=== PATIENT | male | born 1930 | race Caucasian/White ===

== ENCOUNTER 2016-08-24 01:06 | Emergency (ER) | payer MEDICARE, BC ==
[~2016-08-24 01:06] MED LIST: 1-ME1LIQ PO; ALLO300 PO; APIX5TAB PO; CARBXR200 PO; CARV12.52 PO; OMEP20CA5 PO; PRIN20TA2 PO; TAB-TAB PO
[2016-08-24 01:10] VITALS: BP 172/79; PULSE 54; RESP 18; O2SAT 97
[2016-08-24 04:30] VITALS: BP 176/90; PULSE 106; RESP 20; O2SAT 96
[2016-08-24] MEDS ORDERED: SODIUM CHLORID 0.9% 500 ML INJ 500 ML IV ONE (04:45)
[2016-08-24] MEDS ORDERED: SODIUM CHLORIDE 0.9% FLUSH 10 ML FLUSH IV FLUSH PRN (04:45)
[2016-08-24] MEDS ORDERED: ONDANSETRON HCL 4 MG/2 ML VIAL IVP ONE (04:45)
--- NOTE | 2016-08-24 04:47 | PD ---
HPI Chief Complaint: Abdominal Pain Time Seen by Provider: 04:30 Travel History International Travel<30 days: No Contact w/Intl Traveler<30days: No Traveled to known affect area: No History of Present Illness HPI Patient is an 86-year-old male who presents to emergency room with complaints of abdominal pain. Patient reports that he began to have periumbilical abdominal pain around 10 PM last night. Patient reports that the pain lasted about 4 hours, reports that now he just feels nauseous. Patient reports no sick contacts at home, reports that his ate the same meal as he did and his is fine. Denies any diarrhea. Denies fevers or chills, denies dysuria , urinary urgency or frequency. Patient reports that during these 4 hours of abdominal pain, he had a cough, reports the cough is nonproductive. Patient reports that he feels better at this time, reports just nausea. Patient with no chest pain or shortness of breath at this time. PFSH Past Medical History Hx Anticoagulant Therapy: Yes Atrial Fibrillation: Yes Cancer: Yes (ESPHAGEAL CA) Cardiovascular Problems: Yes (HTN) Diminished Hearing: No GERD: Yes Hypertension: Yes Immunizations Current: Yes (FLU SHOT 2007) Tetanus Vaccination: Unknown Influenza Vaccination: No Past Surgical History Abdominal Surgery: Yes (ESOPHAGEAL CA WITH RECONSTRUCTION 1996 S/P ESOPHAGECTOMY) Joint Replacement: Yes (LT KNEE X 2) Oral Surgery: Yes Other Surgery: Yes (FRONTAL SINUS REMOVAL ) Social History Alcohol Use: No Tobacco Use: No Substance Use: No Allergies-Medications (Allergen,Severity, Reaction): Coded Allergies: No Known Allergies (Verified , 08/24/16) Reported Meds & Prescriptions Reported Meds & Active Scripts Active Reported Carvedilol 12.5 mg (Carvedilol) 12.5 Mg Tab 1 Tab PO DAILY Amlodipine Besylate 10 mg (Amlodipine Besylate) 10 Mg Tab 1 Tab PO DAILY Eliquis (Apixaban) 5 Mg Tab 5 Mg PO BID Tegretol-Xr (Carbamazepine) 200 Mg Tab 100 Mg PO BID Multivitamin (Multivitamins) 1 Tab Tab 1 Tab PO DAILY Zyloprim (Allopurinol) 300 Mg Tab 300 Mg PO DAILY Prilosec 20 mg (Omeprazole) 20 Mg Capcr 20 Mg PO DAILY Prinivil (Lisinopril) 20 Mg Tab 20 Mg PO DAILY Review of Systems General / Constitutional: No: Fever Eyes: No: Visual changes HENT: No: Headaches Cardiovascular: No: Chest Pain or Discomfort Respiratory: Positive: Cough, No: Shortness of Breath Gastrointestinal: Positive: Nausea, Abdominal Pain, No: Vomiting Genitourinary: No: Dysuria Musculoskeletal: No: Pain Skin: No Rash Neurologic: No: Weakness Psychiatric: No: Depression Endocrine: No: Polydipsia Hematologic/Lymphatic: No: Easy Bruising Physical Exam Narrative GENERAL: nad, nontoxic SKIN: Focused skin assessment warm/dry. HEAD: Atraumatic. Normocephalic. EYES: Pupils equal and round. No injection or drainage. ENT: No nasal bleeding or discharge. Mucous membranes pink and moist. NECK: Trachea midline. No JVD. CARDIOVASCULAR: Regular rate and rhythm. No murmur appreciated. RESPIRATORY: No accessory muscle use. Clear to auscultation. Breath sounds equal bilaterally. GASTROINTESTINAL: Abdomen soft, non-tender, nondistended. MUSCULOSKELETAL: No obvious deformities. No clubbing. No cyanosis. No edema. NEUROLOGICAL: Awake and alert. No obvious cranial nerve deficits. Motor grossly within normal limits. Normal speech. PSYCHIATRIC: Appropriate mood and affect; insight and judgment normal. Data Data Last Documented VS Vital Signs Date Time Temp Pulse Resp B/P Pulse Ox O2 Delivery O2 Flow Rate FiO2 08/24/16 06:25 99 20 162/75 95 Orders Complete Blood Count With Diff (08/24/16 04:38) Comprehensive Metabolic Panel (08/24/16 04:38) Lipase (08/24/16 04:38) Urinalysis - C+S If Indicated (08/24/16 04:38) Ct Abd/Pel W/O Iv Contrast (08/24/16 04:38) Iv Access Insert/Monitor (08/24/16 04:38) Ondansetron Inj (Zofran Inj) (08/24/16 04:45) Sodium Chloride 0.9% Flush (Ns Flush) (08/24/16 04:45) Chest, Single Ap (08/24/16 04:38) Sodium Chlorid 0.9% 500 Ml Inj (Ns 500 M (08/24/16 04:45) Labs Laboratory Tests Test 08/24/16 04:50 White Blood Count 11.2 TH/MM3 Red Blood Count 4.43 MIL/MM3 Hemoglobin 14.5 GM/DL Hematocrit 42.9 % Mean Corpuscular Volume 96.9 FL Mean Corpuscular Hemoglobin 32.7 PG Mean Corpuscular Hemoglobin 33.7 % Concent Red Cell Distribution Width 13.8 % Platelet Count 147 TH/MM3 Mean Platelet Volume 8.4 FL Neutrophils (%) (Auto) 91.3 % Lymphocytes (%) (Auto) 5.4 % Monocytes (%) (Auto) 3.0 % Eosinophils (%) (Auto) 0.1 % Basophils (%) (Auto) 0.2 % Neutrophils # (Auto) 10.2 TH/MM3 Lymphocytes # (Auto) 0.6 TH/MM3 Monocytes # (Auto) 0.3 TH/MM3 Eosinophils # (Auto) 0.0 TH/MM3 Basophils # (Auto) 0.0 TH/MM3 CBC Comment DIFF FINAL Differential Comment Sodium Level 134 MEQ/L Potassium Level 4.0 MEQ/L Chloride Level 98 MEQ/L Carbon Dioxide Level 27.9 MEQ/L Anion Gap 8 MEQ/L Blood Urea Nitrogen 12 MG/DL Creatinine 0.98 MG/DL Estimat Glomerular Filtration 73 ML/MIN Rate Random Glucose 154 MG/DL Calcium Level 9.3 MG/DL Total Bilirubin 2.1 MG/DL Aspartate Amino Transf 372 U/L (AST/SGOT) Alanine Aminotransferase 215 U/L (ALT/SGPT) Alkaline Phosphatase 133 U/L Total Protein 7.7 GM/DL Albumin 4.2 GM/DL Lipase 327 U/L [facility] Medical Decision Making Medical Screen Exam Complete: Yes Emergency Medical Condition: Yes Interpretation(s) Vital Signs Date Time Temp Pulse Resp B/P Pulse Ox O2 Delivery O2 Flow Rate FiO2 08/24/16 04:30 106 20 176/90 96 08/24/16 01:51 16 08/24/16 01:10 54 18 172/79 97 Differential Diagnosis Acute gastroenteritis, colitis, acute appendicitis, UTI, pneumonia Narrative Course Patient is an 86-year-old male who presents to emergency room with complaints of abdominal pain. Patient with abdominal pain which started around 10 PM last night, patient reports that his symptoms lasted for about 4 hours and had associated nausea and vomiting. Patient reports that pain has improved at this time, reports that he is still feeling a little nauseous at this time. Will obtain labs, CT abdomen pelvis without contrast. X-ray chest ordered to evaluate for pneumonia, free air in the abdomen. Plan to continue to monitor patient Laboratory Tests Test 4/12/17 04:50 White Blood Count 11.2 TH/MM3 (4.0-11.0) Red Blood Count 4.43 MIL/MM3 (4.50-5.90) Hemoglobin 14.5 GM/DL (13.0-17.0) Hematocrit 42.9 % (39.0-51.0) Mean Corpuscular Volume 96.9 FL (80.0-100.0) Mean Corpuscular Hemoglobin 32.7 PG (27.0-34.0) Mean Corpuscular Hemoglobin 33.7 % Concent (32.0-36.0) Red Cell Distribution Width 13.8 % (11.6-17.2) Platelet Count 147 TH/MM3 (150-450) Mean Platelet Volume 8.4 FL (7.0-11.0) Neutrophils (%) (Auto) 91.3 % (16.0-70.0) Lymphocytes (%) (Auto) 5.4 % (9.0-44.0) Monocytes (%) (Auto) 3.0 % (0.0-8.0) Eosinophils (%) (Auto) 0.1 % (0.0-4.0) Basophils (%) (Auto) 0.2 % (0.0-2.0) Neutrophils # (Auto) 10.2 TH/MM3 (1.8-7.7) Lymphocytes # (Auto) 0.6 TH/MM3 (1.0-4.8) Monocytes # (Auto) 0.3 TH/MM3 (0-0.9) Eosinophils # (Auto) 0.0 TH/MM3 (0-0.4) Basophils # (Auto) 0.0 TH/MM3 (0-0.2) CBC Comment DIFF FINAL Differential Comment Sodium Level 134 MEQ/L (136-145) Potassium Level 4.0 MEQ/L (3.5-5.1) Chloride Level 98 MEQ/L (98-107) Carbon Dioxide Level 27.9 MEQ/L (21.0-32.0) Anion Gap 8 MEQ/L (5-15) Blood Urea Nitrogen 12 MG/DL (7-18) Creatinine 0.98 MG/DL (0.60-1.30) Estimat Glomerular Filtration 73 ML/MIN (>89) Rate Random Glucose 154 MG/DL (74-106) Calcium Level 9.3 MG/DL (8.5-10.1) Total Bilirubin 2.1 MG/DL (0.2-1.0) Aspartate Amino Transf 372 U/L (15-37) (AST/SGOT) Alanine Aminotransferase 215 U/L (12-78) (ALT/SGPT) Alkaline Phosphatase 133 U/L (45-117) Total Protein 7.7 GM/DL (6.4-8.2) Albumin 4.2 GM/DL (3.4-5.0) Lipase 327 U/L (73-393) Last Impressions Chest X-Ray 08/24/164 Signed Impressions: Service Date/Time: Wednesday, August 24, 2016 04:51 - CONCLUSION: 1. Minimal peripheral chronic interstitial changes. 2. Gastric pull-through and evidence of esophagectomy. Antonio Childers MD Abdomen/Pelvis CT 08/24/16 [id number] Signed Impressions: Service Date/Time: Wednesday, August 24, 2016 05:34 - CONCLUSION: 1. Left inguinal hernia containing loop of small bowel without signs of strangulation or obstruction. 2. 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 3. Extensive diverticulosis without diverticulitis. 4. Esophagectomy with gastric pull-through. Antonio Childers MD Patient reevaluated, patient feeling much better. Abdomen is soft, nontender, nondistended, no peritoneal signs. I reviewed all labs as well as CT studies with patient in detail. Patient reports that he knew about his aneurysm dilation of his aorta, reports "I have 2 aneurysms" patient also reports that he noticed about his inguinal hernia. Patient was given a copy of the CT report as he will need to follow-up with his primary care doctor with this. Signs and symptoms of when to return to emergency room was reviewed patient in detail. Diagnosis Primary Impression: Abdominal pain Qualified Code: R10.9 - Abdominal pain, unspecified location Additional Impression: Transaminitis Patient Instructions: General Instructions Additional Instructions: Please follow-up with primary care doctor in 1-2 days Return to emergency room if symptoms return Please bring a copy of your CT report to doctor's office for follow-up Disposition: 01 DISCHARGE HOME Condition: Stable [place] Hoffman DO Aug 24, 2016 04:47
--- NOTE | 2016-08-24 05:30 | RADRPT ---
EXAM DATE/TIME: 08/24/2016 04:51 [facility] COMPARISON: CT PULMONARY ANGIOGRAM, July 08, 2015, 9:27. INDICATIONS : Cough. MEDICAL HISTORY : Hypertension. Carcinoma, esophageal. Atrial fibrillation. SURGICAL HISTORY : Esophagectomy with reconstruction ENCOUNTER: Initial ACUITY: 1 day PAIN SCORE: 5/10 LOCATION: Bilateral chest FINDINGS: A single view of the chest demonstrates minimal peripheral interstitial changes. No consolidation. Th ere is a gastric pull through and esophagectomy. Heart normal in size. The cardiomediastinal contours are unremarkable. Osseous structures are intact. CONCLUSION: 1. Minimal peripheral chronic interstitial changes. 2. Gastric pull-through and evidence of esophagectomy. Antonio Childers MD on August 24, 2016 at 5:26 Board Certified Radiologist. This report was verified electronically.
[2016-08-24 05:40] LABS: ALT (GPT) 215 U/L (12-78); ANION GAP 8 MEQ/L (5-15); AST (GOT) 372 U/L (15-37); BICARBONATE 27.9 MEQ/L (21.0-32.0); BLOOD UREA NITROGEN 12 MG/DL (7-18); CHLORIDE 98 MEQ/L (98-107); GLOMERULAR FILTRATION RATE 73 ML/MIN (>89); SODIUM (NA) 134 MEQ/L (136-145)
[2016-08-24 05:42] LABS: ALKALINE PHOSPHATASE 133 U/L (45-117); TOTAL BILIRUBIN ADULT 2.1 MG/DL (0.2-1.0)
[2016-08-24 06:01] LABS: AUTOMATED NEUTROPHIL # 10.2 TH/MM3 (1.8-7.7); BASOPHIL % 0.2 % (0.0-2.0); EOSINOPHIL % 0.1 % (0.0-4.0); HEMATOCRIT 42.9 % (39.0-51.0); HEMO FLAGS DIFF FINAL; LYMPH % 5.4 % (9.0-44.0); LYMPHOCYTE # 0.6 TH/MM3 (1.0-4.8); MEAN CELL VOLUME 96.9 FL (80.0-100.0); MEAN CORPUSCULAR HEMOGLOBIN 32.7 PG (27.0-34.0); MEAN CORPUSCULAR HGB CONC 33.7 % (32.0-36.0); NEUT % 91.3 % (16.0-70.0); PLATELET COUNT 147 TH/MM3 (150-450); RED BLOOD COUNT 4.43 MIL/MM3 (4.50-5.90); RED CELL DISTRIBUTION WIDTH 13.8 % (11.6-17.2); WHITE BLOOD COUNT 11.2 TH/MM3 (4.0-11.0)
--- NOTE | 2016-08-24 06:15 | RADRPT ---
EXAM DATE/TIME: 08/24/2016 05:34 [facility] COMPARISON: CT ABDOMEN & PELVIS W CONTRAST, July 08, 2015, 9:27. INDICATIONS : Periumbilical abdominal pain with nausea. ORAL CONTRAST: No oral contrast ingested. RADIATION DOSE: 8.04 CTDIvol (mGy) MEDICAL HISTORY : Hypertension. Carcinoma, esophageal. Gastroesophageal reflux disease. SURGICAL HISTORY : Esophagectomy. ENCOUNTER: Initial ACUITY: 1 day PAIN SCALE: 7/10 LOCATION: Abdomen. TECHNIQUE: Volumetric scanning of the abdomen and pelvis was performed. Using automated exposure control and ad justment of the mA and/or kV according to patient size, radiation dose was kept as low as reasonably achievable to obtain optimal diagnostic quality images. FINDINGS: LOWER LUNGS: The visualized lower lungs are clear. LIVER: Homogeneous density without lesion. There is no dilation of the biliary tree. No calcified gallston es. SPLEEN: Normal size without lesion. PANCREAS: Within normal limits. KIDNEYS: Normal in size and shape. There is no mass, stone, or hydronephrosis. ADRENAL GLANDS: Within normal limits. VASCULAR: There is infrarenal aortic aneurysm measures 3.7 x 2.6 cm. There is also aneurysmal dilatation of the upper abdominal aorta measuring 3.5 x 2.5 cm.. BOWEL/MESENTERY: Esophagectomy and gastric pull-through. Extensive diverticulosis without diverticulitis.. There is n o free intraperitoneal air or fluid. ABDOMINAL WALL: Within normal limits. RETROPERITONEUM: There is no lymphadenopathy. BLADDER: No wall thickening or mass. REPRODUCTIVE: Within normal limits. INGUINAL: Left sided inguinal hernia containing a small segment of small bowel loop. No signs of obstruction or strangulation. There is no lymphadenopathy or hernia on the right. MUSCULOSKELETAL: Within normal limits for patient age. CONCLUSION: 1. Left inguinal hernia containing loop of small bowel without signs of strangulation or obstruction. 2. 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 3. Extensive diverticulosis without diverticulitis. 4. Esophagectomy with gastric pull-through. Antonio Childers MD on August 24, 2016 at 6:09 Board Certified Radiologist. This report was verified electronically.
[2016-08-24 06:25] VITALS: BP 162/75; PULSE 99; RESP 20; O2SAT 95
[2016-08-24] MEDS ORDERED: ONDANSETRON HCL 4 MG/2 ML VIAL IV PUSH ONE (06:45)
== END 2016-08-24 06:30 | disposition home or self-care (01) ==
LOC: NEPC 01:06
DX: R10.9 Unspecified abdominal pain (principal); R74.0 Nonspecific elevation of levels of transaminase and lactic acid dehydrogenase [LDH]; R11.0 Nausea; K21.9 Gastro-esophageal reflux disease without esophagitis; I10 Essential (primary) hypertension
CPT/HCPCS: 71010; 74176; 80053; 83690; 85025; 96361; 96374; 99284; J2405; J7040